=== PATIENT | female | born 1955 | race Caucasian/White ===

== ENCOUNTER 2016-05-26 12:47 | Day surgery (SDC) | payer OTHER ==
[~2016-05-26] VITALS: Ht 185.4 cm; Wt 59.0 kg
[~2016-05-26 12:47] MED LIST: 0.9% Sodium Chloride 1,000 ML IV SCH; ALBU6.7H INH; AMLO10TA3 PO; ASPI325T32 PO; CALC600T12 PO; CHOL10008 PO; FLUT9.9S NS; HYDR25TA4 PO; SERT100T PO; Sodium Chloride LOK Flush 10 mL Syringe IV PRN; fentaNYL-PF 50 mCg/mL 2 mL Inj IVPUSH PRN
[2016-05-26 13:25] VITALS: BP 121/90; PULSE 60; RESP 15; O2SAT 98
[2016-05-26 14:49] VITALS: BP 148/96; PULSE 50; RESP 16; O2SAT 99
[2016-05-26 14:59] VITALS: BP 139/87; PULSE 51; RESP 14; O2SAT 98
[2016-05-26 15:08] VITALS: BP 161/100; PULSE 61; O2SAT 99
--- NOTE | 2016-05-26 15:24 | ENDO ---
[address] [address] ENDOSCOPY PROCEDURE PATIENT: BEKA NELSON : 1955 MR#: [id number] ADMIT: 05/26/2016 JOB ID: [id number] DATE: 05/26/2016 PROCEDURE: Colonoscopy. INDICATION: Screening. The patient's ASA classification is 2. Mallampati score is 2. MEDICATIONS: 1. Versed 4 mg. 2. Fentanyl 100 mcg. INSTRUMENT USED: PCF H 180 AL. PREPARATION QUALITY: Was fair. PROCEDURE DETAILS: After informed consent was obtained, the patient was brought into the GI suite, where she was placed on oxygen via nasal cannula and monitored with continuous pulse oximeter, telemetry and blood pressure monitoring. A time-out was performed. Then, she was placed in the left lateral decubitus position. Medications were administered for sedation. Digital rectal examination was performed, which was unremarkable. The colonoscope was then inserted into the rectum and advanced under direct visualization to the cecum, which was identified by the presence of the appendiceal orifice and ileocecal valve. The procedure was difficult secondary to a tortuous ascending colon. Once the cecum was reached, the colonoscope was withdrawn back into the rectum as the mucosa and lumen were examined. In the rectum, retroflexion was performed. Following retroflexion, remaining air in the rectum was suctioned, and the procedure was complete. FINDINGS: 1. In the ascending colon, there was an approximately 2.5 cm sessile polyp that was removed with a hot snare. Following polypectomy, there was a mucosal defect that was approximated with the placement of two hemoclips. 2. In the descending colon, there was an approximately 7 mm sessile polyp that was removed with a hot snare. 3. In the sigmoid colon, there was an approximately 4 mm polyp that was removed with cold snare. 4. In the distal rectum, there were two diminutive polyps that were removed with cold biopsy forceps. IMPRESSION: 1. Descending colon polyp. 2. Ascending polyp. 3. One sigmoid polyp. 4. Two rectal polyps. RECOMMENDATIONS: 1. Avoid nonsteroidal anti-inflammatory drugs and anticoagulants for 72 hours. 2. Repeat colonoscopy in six months. 3. Fiber-rich diet. COMPLICATIONS: None. ESTIMATED BLOOD LOSS: Less than 5 mL.
--- NOTE | 2016-05-29 15:21 | PATH ---
SURGICAL PATHOLOGY Attending Physician:Montserrat De Anda CASE STATUS: Signed Out PATIENT NAME: BEKA NELSON PID: [id number] : 1955 DATE COLLECTED:05/26/2016 00:00 SPECIMEN: 1: Colon, Biopsy 2: Colon, Biopsy 3: Colon, Biopsy 4: Rectum, Biopsy CLINICAL HISTORY: 1). DESCENDING POLYP 2). ASCENDING POLYP 3). SIGMOID POLYP 4). RECTAL POLYP FINAL DIAGNOSIS: 1.DESCENDING COLON POLYP: TUBULAR ADENOMA. 2.ASCENDING COLON POLYP: SESSILE SERRATED ADENOMA. 3.SIGMOID COLON POLYP: HYPERPLASTIC POLYP. 4.RECTAL POLYP: HYPERPLASTIC POLYP INVOLVING BOTH BIOPSY FRAGMENTS. ICD10 CODE D12.4 GROSS DESCRIPTION: Received are four formalin-filled containers, each labeled with the patient' s name. 1. Received in formalin, labeled with the patient' s name and "descending polyp", is one fragment of jewell, soft tissue measuring 0.4 x 0.3 x 0.2 cm. The fragment is totally submitted in cassette 1A. 2. Received in formalin, labeled with the patient' s name and "ascending polyp", are two fragments of jewell, soft tissue ranging in size from 0.4 x 0.3 x 0.3 cm to 1.0 x 0.8 x 0.4 cm. The larger fragment is divided, and all fragments are totally submitted in cassette 2A. 3. Received in formalin, labeled with the patient' s name and "sigmoid polyp", is one fragment of jewell, soft tissue measuring 0.1 x 0.1 x 0.1 cm. The fragment is totally submitted in cassette 3A 4. Received in formalin, labeled with the patient' s name and "rectal polyp", are two fragments of jewell, soft tissue ranging in size from 0.2 x 0.2 x 0.1 cm to 0.4 x 0.2 x 0.1 cm. All fragments are totally submitted in cassette 4A. ([id number]) MICRO DESCRIPTION: See diagnosis. ICD-9 CODES: CPT CODES: 1: 65147 2: 00039 3: 37942 4: 12003 Electronically Signed Out Jacques Baeza MD [facility] Pathology [facility] [address] [place] [id number] Technical component performed at [facility], [address], [address]
== END 2016-05-26 23:59 | disposition home or self-care (01) ==
LOC: END 12:47
PROVIDERS: ATTEND Internal Medicine Gastroenterology
DX: Z12.11 Encounter for screening for malignant neoplasm of colon (principal); D12.4 Benign neoplasm of descending colon; D12.2 Benign neoplasm of ascending colon; D12.5 Benign neoplasm of sigmoid colon; D12.8 Benign neoplasm of rectum; I10 Essential (primary) hypertension; E78.5 Hyperlipidemia, unspecified; M85.80 Other specified disorders of bone density and structure, unspecified site; F32.9 Major depressive disorder, single episode, unspecified; M51.36 Other intervertebral disc degeneration, lumbar region; F17.210 Nicotine dependence, cigarettes, uncomplicated; Z79.82 Long term (current) use of aspirin
CPT/HCPCS: 45380; 45385; 99152; 99153; J7030